=== PATIENT | male | born 1950 | race Asian ===

== ENCOUNTER 2022-08-12 14:24 | Inpatient (IN) | payer MEDICARE, OTHER ==
[~2022-08-12] VITALS: Ht 170.2 cm; Wt 68.5 kg
--- NOTE | 2022-08-12 13:55 | NUR ---
Received admission from [facility] via stretcher with chief complaint of cough, chest congestion and SOB, diagnosis of myocarditis. Awake, alert and oriented. Pt. with IV site on left AC g. 18. Pt. on room air saturating at 96-98%. Denies any pain and discomfort. Placed pt on tele monitor with NSR at [address] Ferrari informed of the admission. Assessment done and observed patient accordingly.
[2022-08-12] MEDS ORDERED: IV NS 1000 ML 1,000 ML IV PRN (16:45)
[2022-08-12] MEDS ORDERED: IBUPROFEN 400 MG TABLET PO PRN (16:45)
[2022-08-12] MEDS ORDERED: GUAIFENESIN/DEXTROMETHORPHAN 5 ML UDC PO PRN (16:45)
[2022-08-12] MEDS ORDERED: ACETAMINOPHEN 325 MG TABLET PO PRN (16:45)
[2022-08-12] MEDS ORDERED: HYDROCODONE/APAP 5-325MG TABLET PO PRN (16:45)
[2022-08-12 17:28] LABS: HEMATOCRIT 39.3 % (36.7-47.1); MEAN CORPUSCULAR HEMOGLOBIN 29.7 uug (23.8-33.4); MEAN CORPUSCULAR VOLUME 89.5 fL (73.0-96.2); PLATELET COUNT (AUTO) 261 K/uL (152-348)
[2022-08-12 17:38] LABS: CREATININE 0.8 mg/dL (0.6-1.3); POTASSIUM 3.9 mmol/L (3.5-5.1)
[2022-08-12 17:42] LABS: MAGNESIUM 1.8 mg/dL (1.8-2.4); PHOSPHOROUS 3.2 mg/dL (2.5-4.9)
--- NOTE | 2022-08-12 17:49 | NUR ---
DR YOO CALLED AND GAVE INITIAL ADMISSION ORDERS. REMAINS SR ON MONITOR, DENIES PAIN OR DISTRESS. SATURATING 98% ON RA. AFEBRILE
--- NOTE | 2022-08-12 18:00 | NUR ---
Started IVF NS 1L @ 40cc/hr
[2022-08-12] MEDS: OSELTAMIVIR PHOSPHATE 75 MG CAPSULE PO SCH (18:06)
--- NOTE | 2022-08-12 19:00 | NUR ---
PATIENT ALERT ORIENTED, NO SOB NO CHEST PAIN, TELE MONITOR SINUS RHYTHM , NO COMPLAIN OF PAIN, USES URINAL, NO COUGHING NOTED, CALL LIGHT WITHIN REACH.
[2022-08-12] MEDS ORDERED: ACETAMINOPHEN 650 MG SUPP.RECT RC PRN (19:45)
[2022-08-12] MEDS ORDERED: MAGNESIUM HYDROXIDE 30 ML LIQUID UDC PO PRN (19:45)
[2022-08-12] MEDS ORDERED: ONDANSETRON 4 MG/2 ML VIAL IV PRN (19:45)
[2022-08-12] MEDS ORDERED: DEXTROSE 50% 50 ML DISP.SYRIN IV PRN (19:45)
[2022-08-12] MEDS ORDERED: MELATONIN 3 MG TABLET PO PRN (19:45)
[2022-08-12] MEDS ORDERED: INSULIN REGULAR, HUMAN 300 UNITS/3 ML VIAL SQ PRN (19:45)
[2022-08-12 20:14] VITALS: BP 113/69
[2022-08-12] MEDS: BLOOD SUGAR DIAGNOSTIC 1 EACH STRIP VI SCH (20:42)
[2022-08-13 00:22] VITALS: BP 116/64
[2022-08-13 04:13] VITALS: BP 127/59
[2022-08-13] MEDS: OSELTAMIVIR PHOSPHATE 75 MG CAPSULE PO SCH ×3 (05:21→20:54)
[2022-08-13] MEDS: BLOOD SUGAR DIAGNOSTIC 1 EACH STRIP VI SCH ×4 (05:31→20:54)
[2022-08-13 06:07] LABS: HEMATOCRIT 40.1 % (36.7-47.1); PLATELET COUNT (AUTO) 259 K/uL (152-348)
[2022-08-13 06:32] LABS: IRON, SERUM 78 ug/dL (50-175)
[2022-08-13 06:35] LABS: CARBON DIOXIDE 28 mmol/L (21-32); CHLORIDE 105 mmol/L (98-107); CHOLESTEROL 196 mg/dL (<200); CREATININE 0.7 mg/dL (0.6-1.3); GLUCOSE 140 mg/dL (74-106); HDL CHOLESTEROL 47 mg/dL (40-60); MAGNESIUM 1.8 mg/dL (1.8-2.4); TRIGLYCERIDES 78 MG/DL (30-150); UREA NITROGEN, BLOOD 13 mg/dL (7-18)
[2022-08-13 06:43] LABS: THYROID STIMULATING HORMONE 0.609 mIU/mL (0.358-3.740)
[2022-08-13] MEDS: INSULIN REGULAR, HUMAN 300 UNIT/3 ML VIAL SQ PRN ×2 (08:11→11:03)
[2022-08-13 12:00] VITALS: BP 144/53
[2022-08-13] MEDS: glyBURIDE 5 MG TABLET PO SCH ×2 (12:26→18:18)
[2022-08-13 16:00] VITALS: BP 149/67
--- NOTE | 2022-08-13 18:21 | NUR ---
patient is alert, oriented x4, no sob, respirations are even nonlabored, skin warm and dry to touch, no acute distress noted.
[2022-08-13 20:00] VITALS: BP 117/53
[2022-08-13] MEDS ORDERED: ATORVASTATIN 20 MG TABLET PO SCH (21:00)
[2022-08-14] VITALS: BP 118/63
[2022-08-14 04:00] VITALS: BP 114/62
[2022-08-14] MEDS: BLOOD SUGAR DIAGNOSTIC 1 EACH STRIP VI SCH ×2 (06:18→11:06)
[2022-08-14 06:46] LABS: HEMATOCRIT 39.5 % (36.7-47.1); MEAN CORPUSCULAR HEMOGLOBIN 29.4 uug (23.8-33.4); MEAN CORPUSCULAR VOLUME 88.3 fL (73.0-96.2); PLATELET COUNT (AUTO) 259 K/uL (152-348)
[2022-08-14 07:08] LABS: CREATININE 0.7 mg/dL (0.6-1.3); MAGNESIUM 1.9 mg/dL (1.8-2.4); PHOSPHOROUS 3.5 mg/dL (2.5-4.9); POTASSIUM 3.7 mmol/L (3.5-5.1)
[2022-08-14] MEDS: OSELTAMIVIR PHOSPHATE 75 MG CAPSULE PO SCH (08:08)
[2022-08-14] MEDS: glyBURIDE 5 MG TABLET PO SCH (08:08)
[2022-08-14] MEDS: INSULIN REGULAR, HUMAN 300 UNIT/3 ML VIAL SQ PRN (11:08)
[2022-08-14 11:55] VITALS: BP 119/69
[2022-08-14] MEDS ORDERED: GLYB5TAB7 PO (13:32)
[2022-08-14] MEDS ORDERED: IBUP-1953 PO (13:32)
[2022-08-14] MEDS ORDERED: ATOR20TA PO (13:32)
[2022-08-14] MEDS ORDERED: ACET325T53 PO (13:32)
--- NOTE | 2022-08-14 16:26 | NUR ---
Pt. discharged home and was picked up by his son. Pt. noted to be stable and no c/o pain. All necessary documents signed and a copy was given to the patient. IV line removed. All personal belonging returned to the patient.
== END 2022-08-14 16:30 | disposition home or self-care (01) | DRG 866 ==
LOC: TELE3 14:24
PROVIDERS: ADMIT Internal Medicine; ATTEND Internal Medicine
DX: J10.82 Influenza due to other identified influenza virus with myocarditis (principal); Z79.82 Long term (current) use of aspirin; E78.5 Hyperlipidemia, unspecified; E11.9 Type 2 diabetes mellitus without complications; R07.89 Other chest pain; R77.8 Other specified abnormalities of plasma proteins; J10.1 Influenza due to other identified influenza virus with other respiratory manifestations
CPT/HCPCS: 36415; 83550; 83735; 84100; 84443; 84484; 85025; 85610; 85651; 86140; 93005; 93307; G0378; J1815; J7040